=== PATIENT | female | born 1975 | race Caucasian/White ===

== ENCOUNTER 2024-01-10 10:33 | Outpatient (CLI) | payer OTHER, SELFPAY ==
--- NOTE | 2024-01-10 12:20 | XR_ITS ---
WS: [id number] Exam: XR shoulder LT min 2V* [id number] Date/Time of Exam: 01/10/2024 12:25 PM Reason For Exam: L SHOULDER JOINT PAIN The projections of the shoulder reveal no fractures, anomalies, soft tissue swelling, or calcificatio ns. There is normal bony alignment. No irregularity of the bony architecture is noted. XR/XR shoulder LT min 2V* [id number] IMPRESSION: Negative LEFT shoulder.
== END 2024-01-10 10:34 | disposition home or self-care (01) ==
LOC: RAD 10:42
PROVIDERS: PCP Nurse Practitioner Family; Visit Provider Nurse Practitioner Family
DX: M25.512 Pain in left shoulder (principal)
CPT/HCPCS: 73030

== ENCOUNTER 2024-06-05 14:20 | Outpatient (CLI) | payer OTHER, SELFPAY ==
--- NOTE | 2024-06-05 14:20 | MM_ITS ---
WS: [id number] BILATERAL 3D TOMOSYNTHESIS DIGITAL SCREENING MAMMOGRAPHY WITH CAD CLINICAL INFORMATION: SCREENING HISTORY: Screening mammogram. No current complaints. COMPARISON: 2022 TECHNIQUE: Bilateral CC and MLO views. FINDINGS: Scattered fibroglandular densities bilaterally. No suspicious focal mass, asymmetry, calcifications, or architectural distortion. No evidence of malignancy. Incidental punctate calcifications RIGHT [address]. Biopsy marker 12 o'clock position RIGHT breast MM/MM scr BI tomosynthesis [id number] IMPRESSION: DENSITY: There are scattered areas of fibroglandular density. BI-RADS: 2 - Benign. FOLLOW UP: 1 Year Follow-up Recommend return to annual screening mammography.
== END 2024-06-05 14:21 | disposition home or self-care (01) ==
LOC: MOBLMAM 14:28
PROVIDERS: PCP Nurse Practitioner Family; Visit Provider Nurse Practitioner Family
DX: Z12.31 Encounter for screening mammogram for malignant neoplasm of breast (principal); R92.323 Mammographic fibroglandular density, bilateral breasts; R92.1 Mammographic calcification found on diagnostic imaging of breast
CPT/HCPCS: 77063; 77067

== ENCOUNTER → 2025-05-06 08:53 | Outpatient (BNVA) | payer OTHER, SELFPAY | PROVIDERS: PCP Nurse Practitioner Family; Visit Provider Podiatrist Foot & Ankle Surgery | DX: G57.62 Lesion of plantar nerve, left lower limb (principal); M21.622 Bunionette of left foot; L84 Corns and callosities | CPT/HCPCS: 73630 ==

== ENCOUNTER 2025-05-06 09:55 | Outpatient (CLI) | payer OTHER, SELFPAY ==
--- NOTE | 2025-05-06 10:06 | XRR_ITS ---
PROCEDURE INFORMATION: Exam: XR Chest Exam date and time: 05/06/2025 10:23 AM Age: 50 years old Clinical indication: Cough; Prior surgery; Surgery date: 6+ months; Surgery type: Hysterectomy; Additional info: Chronic cough TECHNIQUE: Imaging protocol: Radiologic exam of the chest. Views: 2 views. COMPARISON: CR XR shoulder LT min 2V* [id number] 01/10/2024 12:52 PM FINDINGS: Lungs: No consolidation. Pleural spaces: No sizable pleural effusion or pneumothorax. Heart/Mediastinum: No cardiomegaly. Bones/joints: Unremarkable. XR/XR chest 2V* [id number] IMPRESSION: No acute intrathoracic findings.
== END 2025-05-06 09:56 | disposition home or self-care (01) ==
PROVIDERS: PCP Nurse Practitioner Family; Visit Provider Nurse Practitioner Family
DX: R05.3 Chronic cough (principal)
CPT/HCPCS: 71046

== ENCOUNTER 2025-05-10 10:38 | Outpatient (CLI) | payer OTHER, SELFPAY ==
--- NOTE | 2025-05-10 11:00 | MR_ITS ---
WS: [id number] MRI LEFT FOOT WITH AND WITHOUT CONTRAST. COMPARISON: Radiograph 05/06/2025 Multiplanar, multisequence imaging is performed with and without contrast. Sagittal and axial T1 fat sat sequences post-MultiHance 17 cc IV. History: LEFT foot pain and numbness. History of prior George's neuroma excision. Some of the sequences are suboptimal due to motion artifact. There is a single 1.9 mm low signal mass seen best on the postcontrast imaging in the third intermetatarsal space. There is no enhancement. This is closely associated with the interdigital nerve. No additional masses in the intermetatarsal spaces. There is no bursitis. No marrow edema in the bones of the foot. Mild narrowing of the first metatarsal interphalangeal joint. No mass or signal abnormality along the plantar surface of the foot. The lateral plantar vein is mildly prominent but not thrombosed. MR/MR foot LT wo/w con [id number] IMPRESSION: 1. There is a single tiny, 1.9 mm low-attenuation mass seen best on the postco ntrast imaging in the third intermetatarsal space closely associated with the i nterdigital nerve. This could be a very tiny neuroma. With a history of prior s urgery this also be related to fibrosis along the interdigital nerve. Correlate with exact location of prior George's neuroma excision. 2. No marrow edema or fractures.
[2025-05-10] MEDS: gadobenate dimeglumine 20 mL vial IV (11:38)
== END 2025-05-10 10:39 | disposition home or self-care (01) ==
LOC: RAD 10:41
PROVIDERS: PCP Nurse Practitioner Family; Visit Provider Podiatrist Foot & Ankle Surgery
DX: G57.62 Lesion of plantar nerve, left lower limb (principal)
CPT/HCPCS: 73720